=== PATIENT | female | born 1985 | race Caucasian/White ===

== ENCOUNTER 2021-06-15 15:21 | Inpatient (IN) | payer BC ==
[~2021-06-15] VITALS: Ht 160 cm; Wt 88.0 kg
--- NOTE | 2021-06-15 21:00 | PR ---
[facility] [address] [facility] [place], [place] [address] Signed Progress Notes IP Datetime Report Generated by CPN: 06/15/2021 21:00 PROGRESS NOTES: [id number] Other Impressions: Slow Progress Plan: Anticipate Vaginal Delivery VITAL SIGNS: [id number] Vital Signs: Reviewed; Within Normal Limits EXAM: [id number] Dilatation: 5.0 Effacement: 75 Station: -3 Contractions: irregular MEMBRANES: [id number] Membranes Status: Ruptured Amniotic Fluid Color: Meconium, Particulate Comments: Slow progress, with inadequate contraction pattern. Recommend Epidural, with Pitocin augmentation and IUPC after patient comfortable. Patient agrees. Continue Sliding Scale IV Insulin Will ask Peds to be present for delivery. FETUS A: [id number] FHR Baseline: 130 Variability: Moderate 6-25bpm Accelerations: 15X15 FHR Category: Category I Presentation: Vertex FETUS B: [id number] Signing Physician: Greg Hudson MD Copies: ~ *Electronically Signed* 06/15/212099 GREG HUDSON MD PATIENT NAME: RASHAADJULIOKALE HUERTA PROGRESS NOTE DATE OF : 83 PHYSICIAN: GREG HUDSON MD RPT #: [id number] REPORT IS CONFIDENTIAL AND NOT TO BE RELEASED WITHOUT AUTHORIZATION
--- NOTE | 2021-06-15 22:25 | PR ---
[facility] [address] [facility] [place], [place] [address] Signed Progress Notes IP Datetime Report Generated by CPN: 06/15/2021 22:25 PROGRESS NOTES: [id number] Other Impressions: Slow Progress Procedures: Intrauterine Pressure Catheter; Scalp Electrode Plan: Augmentation VITAL SIGNS: [id number] Vital Signs: Reviewed; Within Normal Limits EXAM: [id number] Dilatation: 5.0 Effacement: 75 Station: -3 Contractions: irregular MEMBRANES: [id number] Membranes Status: Ruptured Amniotic Fluid Color: Meconium, Particulate Comments: Comfortable with Epidural. Start Pitocin augmentation. FETUS A: [id number] FHR Baseline: 130 Variability: Moderate 6-25bpm Accelerations: 15X15 FHR Category: Category I Presentation: Vertex FETUS B: [id number] Signing Physician: Alex Hudson MD Copies: ~ *Electronically Signed* 06/15/212224 ALEX HUDSON MD PATIENT NAME: JULIO NEIL PROGRESS NOTE DATE OF : 83 PHYSICIAN: ALEX HUDSON MD RPT #: [id number] REPORT IS CONFIDENTIAL AND NOT TO BE RELEASED WITHOUT AUTHORIZATION
--- NOTE | 2021-06-16 12:20 | PR ---
[facility] [address] [facility] [place] [address] Signed PP Progress Notes Datetime Report Generated by CPN: 06/16/2021 12:20 SUBJECTIVE: [id number] Pain: Within Normal Limits Nausea/Vomiting: Denies Vital Signs: [id number] Vital Signs: Reviewed; Within Normal Limits Abdomen/Uterus: Normal Lochia: Normal Extremities: Normal IMPRESSION/PLAN/PROCEDURES: [id number] Impression: Normal Progression Plan: Continue Present Management Procedures: None Progress Notes: Doing well, without complaint, tolerating food well. Started back on NPH Insulin at 1/2 dose during ; will follow 's Signing Physician: Alex Hudson MD Copies: ~ *Electronically Signed* 06/16/21 1220 ALEX HUDSON MD PATIENT NAME: JULIO NEIL PROGRESS NOTE DATE OF : 83 PHYSICIAN: ALEX HUDSON MD RPT #: [id number] REPORT IS CONFIDENTIAL AND NOT TO BE RELEASED WITHOUT AUTHORIZATION
--- NOTE | 2021-06-17 09:11 | PR ---
[facility] [address] [facility] [place], [place] [address] Signed PP Progress Notes Datetime Report Generated by CPN: 06/17/2021 09:11 SUBJECTIVE: [id number] Pain: Within Normal Limits Nausea/Vomiting: Denies Vital Signs: [id number] Vital Signs: Reviewed; Within Normal Limits Abdomen/Uterus: Normal Lochia: Normal Extremities: Normal IMPRESSION/PLAN/PROCEDURES: [id number] Impression: Normal Progression Plan: Discharge Procedures: None Progress Notes: Doing well, without complaint, ready to go home. Signing Physician: Alex Hudson MD Copies: ~ *Electronically Signed* 06/17/21910 ALEX HUDSON MD PATIENT NAME: JULIO NEIL PROGRESS NOTE DATE OF : 83 PHYSICIAN: ALEX HUDSON MD RPT #: [id number] REPORT IS CONFIDENTIAL AND NOT TO BE RELEASED WITHOUT AUTHORIZATION
== END 2021-06-17 12:06 | disposition home or self-care (01) | DRG 805 ==
LOC: FBCO 15:21 → FBC 15:27 → FBCO 06-16 15:17 → EDSTATUS 06-16 15:17 → FBC 06-17 12:06
PROVIDERS: ADMIT General Practice; ATTEND General Practice
PROC: 10E0XZZ Delivery of Products of Conception, External Approach (ICD-10-PCS; principal; 2021-06-16)
PROC: 3E0R3BZ Introduction of Anesthetic Agent into Spinal Canal, Percutaneous Approach (ICD-10-PCS; 2021-06-16)
PROC: 00HU33Z Insertion of Infusion Device into Spinal Canal, Percutaneous Approach (ICD-10-PCS; 2021-06-16)
DX: O36.8930 Maternal care for other specified fetal problems, third trimester, not applicable or unspecified (principal); O24.12 Pre-existing type 2 diabetes mellitus, in childbirth; Z37.0 Single live birth; Z3A.38 38 weeks gestation of pregnancy; Z20.822 Contact with and (suspected) exposure to COVID-19; E11.9 Type 2 diabetes mellitus without complications; O77.0 Labor and delivery complicated by meconium in amniotic fluid; Z79.82 Long term (current) use of aspirin; Z79.899 Other long term (current) drug therapy; Z79.4 Long term (current) use of insulin
CPT/HCPCS: 01960; 36415; 82803; 85027; 86850; 86900; 86901; J1815; J2590; J2795; J3010; J7042; J7121; U0003

== ENCOUNTER 2021-12-20 14:13 | Observation (INO) | payer BC ==
[~2021-12-20] VITALS: Ht 160 cm; Wt 77.5 kg
--- NOTE | 2021-12-20 17:37 | NUR ---
medications reconciled, patient takes no medications
--- NOTE | 2021-12-20 18:20 | NUR ---
36 YEAR OLD FEMALE PT ADMITTED TO CCU VIA STRETCHER UNDER DR. HAMILTON WITH DX OF DKA.IS 6 MONTHS. 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 PATIENT STATES SHE HAS BEEN FEELING ILL FOR APPROX 3 HAS, HAS HAD FOR 3 DAYS WELL. HAS BEEN DX WITH DM TYPE 2 FRO APPROX 8 YEARS. PATIENT IS AWAKE AND ALERT IS ABLE TO ANSWERE QUESTIONS. FEEL LIGHTHEADED WITH TRANSFER FROM STRETCHER TO BED. INSULIN GTT INFUSING AT 5 UNITS HR. IVF OF LR W/20 KCL HUNG AT 200 ML/HR. ADMISSION PROCESS STARTED.
--- NOTE | 2021-12-20 19:19 | NUR ---
REPORT TO NEXT SHIFT. 1899 ACCUCHECK-234. INSULIN GTT DECREASED TO 3.4 UNITS/HR.
--- NOTE | 2021-12-20 19:58 | NUR ---
PATIENT RESTING IN BED. LAB AT BEDSIDE. EDUCATED PATIENT ON HOURLY BG CHECKS AND 6 HOUR LAB DRAWS. PATIENT DENIES PAIN. VS STABLE. CALL LIGHT IN REACH AND CAN MAKE NEEDS KNOWN.
--- NOTE | 2021-12-20 21:00 | NUR ---
DR HAMILTON NOTIFIED OF BG <200. IV FLUIDS CHANGED. SEE EMAR. PATIENT AMBULATED TO THE RESTROOM INDEPENDENTLY TOP VOID.
--- NOTE | 2021-12-20 23:28 | NUR ---
PATIENT RESTING IN BED WITH EYES CLOSED. RESPIRATIONS EVEN AND UNLABORED. CALL LIGHT IN REACH AND CAN MAKE NEEDS KNOWN. EASILY ARROUSES FOR BG CHECKS.
--- NOTE | 2021-12-21 04:36 | NUR ---
PATIENT RESTING IN BED WITH EYES CLOSED. RESPIRATIONS EVEN AND UNLABORED. CALL LIGHT IN REACH AND CAN MAKE NEEDS KNOWN.
--- NOTE | 2021-12-21 08:00 | NUR ---
ASSESSMENT DONE. DENIES PAIN. IS NURSING BABY. TALKED WITH PATIENT ABOUT POC FOR DAY, INDICATES UNDERSTANDING. TAKING WATER. DENIES NAUSEA.
--- NOTE | 2021-12-21 09:42 | NUR ---
RESTING AT THIS TIME. PATIENT BABY HAS BEEN IN ROOM.
--- NOTE | 2021-12-21 10:20 | NUR ---
TOOK FEW BITES OF YOGURT. SLEEPING NOW, NO DISTRESS NOTED.
--- NOTE | 2021-12-21 10:23 | NUR ---
LONG ACTING INSULIN 40 UNITS GIVEN, SITTING UP IN BED TO TAKE BREAKFAST OF YOGURT, OATMEAL,MILK. IVF TO OFF, KCL 40 MEQ PO GIVEN. PATIENT IS AWARE OF POC FOR THE DAY.
--- NOTE | 2021-12-21 10:30 | NUR ---
Patient lives with and 4 children. The plan is that the patient will go home with family. Patient Undrestands how to take care of Her DM and does not need special education. Patient does not need DME and she owns her own glucometer.Patient also does not have money issue for medication and DM supplies.
--- NOTE | 2021-12-21 11:11 | NUR ---
INSULIN GTT TO OFF. PATIENT IS SLEEPING.
--- NOTE | 2021-12-21 11:40 | NUR ---
ACCUCHECK 109. NO INSULIN GIVEN. SITTING UP IN BED FOR LUNCH.
--- NOTE | 2021-12-21 16:10 | NUR ---
ACCUCHECK-204. DR. HAMILTON AWARE. DISCHARGE ORDERS RECIEVED.
[2021-12-21] MEDS ORDERED: SEMGLEE (Y100 UNIT/2 SUB-Q (16:18)
[2021-12-21] MEDS ORDERED: METFORMIN HCL500 MG PO ×2 (16:18→16:20)
--- NOTE | 2021-12-21 16:48 | EKG ---
[facility] [address] [facility] [place] [address] Signed Sinus tachycardia Otherwise normal ECG When compared with ECG of 17-FEB-2021 16:44, No significant change was found Confirmed by WAYNE HAMILTON MD ([id number]) on 12/21/2021 4:48:33 PM Electronically Signed By: WAYNE HAMILTON MD 12/21/21 1648 PATIENT NAME: RASHAADJULIO BRADLEY Electrocardiogram DATE OF : 83 PHYSICIAN: WAYNE HAMILTON MD REPORT #: [id number] REPORT IS CONFIDENTIAL AND NOT TO BE RELEASED WITHOUT AUTHORIZATION
--- NOTE | 2021-12-21 16:50 | NUR ---
HUMALOG INSULIN 4 UNITS SQ GIVEN. READY TO EAT DINNER. PATIENT IS W/O NAUSEA OR PAIN. IV SITES x 2 DC'D WITH CATH INTACT.
--- NOTE | 2021-12-21 17:00 | NUR ---
DISCHARGE INSTRUCTIONS GIVEN WITH PATINET UNDERSTANDING,
--- NOTE | 2021-12-21 17:25 | NUR ---
discharged to HOME VIA W/C ACCOMP BY RN AND FAMILY MEMBERS.
== END 2021-12-21 17:25 | disposition home or self-care (01) ==
LOC: ED 14:13 → CCU 14:15
PROVIDERS: ADMIT Internal Medicine; ATTEND Internal Medicine
DX: E11.10 Type 2 diabetes mellitus with ketoacidosis without coma (principal); U07.1 COVID-19
CPT/HCPCS: 36415; 80048; 80053; 81001; 82010; 82800; 83036; 83735; 84703; 85025; 87502; 93005; 93010; 96372; A9270; C9803; G0378; J1650; J1815; J2405; J3480; J7030; J7120; J7121; U0003